=== PATIENT | female | born 1985 | race Caucasian/White ===

== ENCOUNTER 2024-07-20 00:43 | Emergency (ER) | payer SELFPAY ==
[~2024-07-20] VITALS: Ht 167.6 cm; Wt 78.0 kg
[2024-07-20 00:46] VITALS: O2SAT 100
[2024-07-20 02:08] LABS: BASOPHILS % 0.4 % (0.0-2.0); HEMOGLOBIN. 14.8 g/dL (12.0-16.0); LYMPHOCYTES % 12.9 % (20.0-50.0); MEAN CORPUSCULAR HEMOGLOBIN 30.3 pg (28.0-32.0); MEAN CORPUSCULAR HGB CONC 34.4 g/dL (31.0-37.0); MEAN CORPUSCULAR VOLUME 88.2 fL (81.0-99.0); MEAN PLATELET VOLUME 7.2 fl (7.4-10.4); MONOCYTES % 7.7 % (2.0-8.0); PLATELET 500 x1000/uL (130-400); RED BLOOD CELL COUNT 4.87 mill/uL (4.2-5.4); RED CELL DISTRIBUTION WIDTH 13.4 % (11.6-14.6)
[2024-07-20] MEDS: SODIUM CHLORIDE 0.9% 1,000 ML IV ONE (02:10)
[2024-07-20] MEDS: BUPRENORPHINE 8MG SL TABLET SL ONE (02:10)
[2024-07-20] MEDS: ONDANSETRON HCL 4MG/2ML INJ IV STA (02:10)
[2024-07-20 02:18] LABS: CHLORIDE 95 mEq/L (98-107); POTASSIUM 3.6 mEq/L (3.5-5.1); SODIUM 132 mEq/L (136-145)
[2024-07-20 02:19] LABS: CALCIUM 10.2 mg/dL (8.7-10.4); CARBON DIOXIDE 30 mEq/L (21-32)
[2024-07-20 02:24] LABS: GLUCOSE 147 mg/dL (70-105); UREA NITROGEN BLOOD 20 mg/dL (9-23)
[2024-07-20 02:26] LABS: ALANINE AMINOTRANSFERASE 9 IU/L (10-49); ALBUMIN 5.1 g/dL (3.2-4.8); ASPARTATE AMINOTRANSFERASE 15 IU/L (<34); BILIRUBIN TOTAL 1.1 mg/dL (0.1-1.0); PROTEIN TOTAL 8.7 g/dL (6.0-8.3)
[2024-07-20] MEDS ORDERED: NALO4SPR BOTHNSTRLS (03:11)
[2024-07-20 03:49] VITALS: BP 145/85; PULSE 88; RESP 16; TEMP 37.11408; O2SAT 100
== END 2024-07-20 04:01 | disposition home or self-care (01) ==
LOC: ER 00:43
DX: R53.1 Weakness (principal); R11.2 Nausea with vomiting, unspecified
CPT/HCPCS: 80053; 81025; 85025; 36415; 96361; 96374; 99283; J2405; Z7610 ×2; J7030